=== PATIENT | male | born 1960 | race Two or more races ===

== ENCOUNTER 2022-11-12 19:58 | Emergency (ER) | payer OTHER ==
[~2022-11-12] VITALS: Ht 167.6 cm; Wt 76.2 kg
[2022-11-12] MEDS ORDERED: HYDREA500 M1 PO (20:07)
[2022-11-12] MEDS ORDERED: GLIPIZIDE-METF1 EAC2 PO (20:12)
== END 2022-11-12 22:35 | disposition home or self-care (01) ==
LOC: ER 19:58
DX: T78.40XA Allergy, unspecified, initial encounter (principal)